=== PATIENT | female | born 1940 | race Caucasian/White ===

== ENCOUNTER 2018-06-18 21:25 | Inpatient (IN) | payer OTHER ==
--- NOTE | 2018-06-18 21:28 | PDOC ---
History of Present Illness - General History Source: Patient Exam Limitations: No Limitations - History of Present Illness Initial Comments: 06/18/18 22:33 The patient is a 77-year-old female with a past medical history significant for Breast CA (stage 3 with R. side mastectomy, 2005), spinal lesion (bone biopsy on 06/22/2018), Afib (was on Eliquis) and Asthma presents the emergency department with chest pain and shortness of breath. The patient presents with horizontal chest pain diffused across the chest since 7:30 pm, that worsened at 9:00 pm into radiating pain. The patient reports the pain radiated mid-way bilaterally to the arm. The patient states the pain self-resolving at the ER. The patient reports shes been having intermittent episode of similar chest pain for the past one month, that would self resolve in several minutes. The patient states the pain might be a reaction to a recent increase in her diltiazem medication. The patient reports following up with her radio communication coordinator, who states her symptoms arent manifesting for the heart. The patient reports having an unremarkable stress test and a VQ scan. Denies fever, chills, abdominal pain, urinary symptoms or changes in bowel habits. Allergies: See below. Social history: None reported Surgical history: Appendectomy PCP: None reported. <Sarah Ortiz - Last Filed: 06/18/18 22:45> <Arley Muñoz - Last Filed: 06/19/18 00:03> - General Chief Complaint: Chest Pain Stated Complaint: CP/SOB Time Seen by Provider: 06/18/18 21:28 Past History <Sarah Ortiz - Last Filed: 06/18/18 22:45> - Past Medical History Asthma: Yes Cancer: Yes (BREAST) Cardiac Disorders: Yes Disorders: Yes - Surgical History Appendectomy: Yes - Suicide/Smoking/Psychosocial Hx Smoking History: Never smoked Have you smoked in the past 12 months: No Hx Alcohol Use: Yes Drug/Substance Use Hx: No Substance Use Type: None Hx Substance Use Treatment: No <Arley Muñzo - Last Filed: 06/19/18 00:03> - Past Medical History Allergies/Adverse Reactions: Allergies Allergy/AdvReac Type Severity Reaction Status Date / Time amoxicillin Allergy Verified 06/28/15 20:23 ascorbic acid Allergy Verified 06/28/15 20:23 azithromycin Allergy Verified 06/28/15 20:23 ciprofloxacin Allergy Verified 06/28/15 20:23 doxycycline Allergy Verified 06/28/15 20:23 erythromycin base Allergy Verified 06/28/15 20:23 Gadolinium-Containing Allergy Verified 06/28/15 20:23 Contrast Medi levofloxacin Allergy Verified 06/28/15 20:23 lidocaine Allergy Verified 06/28/15 20:23 metronidazole Allergy Verified 06/28/15 20:23 morphine Allergy Verified 06/28/15 20:23 Sulfa (Sulfonamide Allergy Verified 06/28/15 20:23 Antibiotics) albuterol AdvReac Verified 06/28/15 20:23 cyanocobalamin (vitamin B12) AdvReac Verified 06/28/15 20:23 [cyanocobalamin] CONTRAST DYE Allergy Uncoded 06/28/15 20:23 Home Medications: Ambulatory Orders Cyclosporine [Restasis] 1 each OU BID 11/14/14 Eplerenone 50 mg PO DAILY 11/14/14 Fluticasone Propionate [Flovent Hfa] 2 inhaler IH BID 11/14/14 Ipratropium [place] [Atrovent Hfa] 2 inh IH PRN PRN 11/14/14 Levalbuterol Tartrate [Xopenex Hfa] 2 inh IH PRN PRN 11/14/14 Apixaban [Eliquis] 5 mg PO BID #60 tablet 06/26/15 Diltiazem Cd [Cardizem Cd -] 240 mg PO DAILY #30 cap.cd.24h 06/29/15 Review of Systems - Review of Systems Able to Perform ROS?: Yes Comments:: 06/18/18 22:31 CONSTITUTIONAL: No reported: Fever, Chills, Diaphoresis, Generalized Weakness, Malaise, Loss of Appetite HEENT: No reported: Rhinorrhea, Nasal Congestion, Throat Pain, Throat Swelling, Difficulty Swallowing, Mouth Swelling, Ear Pain, Eye Pain, Visual Changes CARDIOVASCULAR: +chest pain No reported: Syncope, Palpitations, Irregular Heart Rate, Lightheadedness, Peripheral Edema RESPIRATORY: +shortness of breath. No reported: Cough, SOB with Exertion, Orthopnea, Wheezing, Stridor, Hemoptysis GASTROINTESTINAL: No reported: Abdominal pain, Abdominal Distension, Nausea, Vomiting, Diarrhea, Constipation, Melena, Hematochezia GENITOURINARY: No reported: Dysuria, Frequency, Urgency, Hesitancy, Flank Pain, Genital Pain MUSCULOSKELETAL: No reported: Myalgia, Arthralgia, Joint Swelling, Back pain, Neck Pain SKIN:No reported: Rash, Itching, Pallor. <Sarah Ortiz - Last Filed: 06/18/18 22:45> *Physical Exam - Vital Signs Last Vital Signs Temp Pulse Resp BP Pulse Ox 97.7 F 96 H 18 137/70 100 06/18/18 21:35 06/18/18 21:35 06/18/18 21:35 06/18/18 21:35 06/18/18 21:35 - Physical Exam Comments: 06/18/18 22:46 GENERAL: The patient is awake, alert, and fully oriented, Nontoxic - in no acute distress. HEAD: Normocephalic, atraumatic. ENT: Normal voice, Moist mucous membranes. NECK: Normal range of motion, supple LUNGS: Breath sounds equal, clear to auscultation bilaterally. No wheezes, no rhonchi, no rales. HEART: Regular rate and rhythm, without murmur, rub or gallop. ABDOMEN: Soft, nontender, No guarding, no rebound.No CVA tenderness EXTREMITIES: Normal range of motion, no edema. No cyanosis. No erythema, or tenderness. NEUROLOGICAL: No facial asymmetry, Normal speech, SKIN: Warm, Dry, normal turgor <Sarah Ortiz - Last Filed: 06/18/18 22:45> Moderate Sedation - Procedure Monitoring Vital Signs: Procedure Monitoring Vital Signs Temperature 97.7 F 06/18/18 21:35 Pulse Rate 96 H 06/18/18 21:35 Respiratory Rate 18 06/18/18 21:35 Blood Pressure 137/70 06/18/18 21:35 O2 Sat by Pulse Oximetry (%) 100 06/18/18 21:35 <Sarah Ortiz - Last Filed: 06/18/18 22:45> ED Treatment Course - LABORATORY CBC & Chemistry Diagram: 06/18/18 22:47 06/18/18 22:47 <Arley Muñoz - Last Filed: 06/19/18 00:03> Medical Decision Making - Medical Decision Making 06/19/18 00:01 sinus at 90 nl axis, prolonged QTC (unchanged), new twi (compared to 2016) inferiorly cxr--worsening interstitial lung dz, as read by me, referred to radiology for definitive read a/p nstemi asa lovenox monitor cards consult in AM <Arley Muñoz - Last Filed: 06/19/18 00:03> *DC/Admit/Observation/Transfer - Attestations Scribe Attestion: 06/18/18 22:32 Documentation prepared by Sarah Ortiz, acting as medical care manager for Arley Muñoz MD. <Sarah Ortiz - Last Filed: 06/18/18 22:45> - Discharge Dispostion Decision to Admit order: Yes <Arley Muñoz - Last Filed: 06/19/18 00:03> Diagnosis at time of Disposition: NSTEMI (non-ST elevated myocardial infarction) - Discharge Dispostion Condition at time of disposition: Stable
[2018-06-18 21:40] VITALS: BMI 34.5
[2018-06-18 23:04] LABS: BASO % 2.1 % (0-2.0); EOS % 1.8 % (0-4.5); HEMATOCRIT 34.4 % (32.4-45.2); HEMOGLOBIN 11.5 GM/dl (10.7-15.3); LYMPH % 21.1 % (8-40); MCH 29.4 pg (25.7-33.7); MCHC 33.5 g/dl (32.0-36.0); MEAN CELL VOLUME 87.7 fl (80-96); MONO % 8.1 % (3.8-10.2); NEUT % 66.9 % (42.8-82.8); PLATELET COUNT 196 K/MM3 (134-434); RBC 3.92 M/mm3 (3.60-5.2); RDW 14.6 % (11.6-15.6); WHITE BLOOD COUNT 6.9 K/mm3 (4.0-10.8)
[2018-06-18 23:13] LABS: ALBUMIN 3.4 g/dl (3.5-5.0); ALK PHOS 77 U/L (32-92); ANION GAP 11 MMOL/L (8-16); BILIRUBIN,TOTAL 0.5 mg/dl (0.2-1.0); BLOOD UREA NITROGEN 18 mg/dl (7-18); CALCIUM 9.1 mg/dl (8.4-10.2); CHLORIDE 103 mmol/L (98-107); CO2 22 mmol/L (22-28); CREATININE 1.1 mg/dl (0.6-1.3); GLUCOSE,RANDOM 194 mg/dl (74-106); POTASSIUM 4.3 mmol/L (3.5-5.1); SGOT/AST 23 U/L (10-42); SGPT/ALT 15 U/L (10-40); SODIUM 136 mmol/L (136-145); TOT PROT 6.5 g/dl (6.4-8.3)
[2018-06-18] MEDS ORDERED: ENOXAPARIN NA (PORCINE) 100 MG/1 ML DISP.SYRIN SQ ONE ×2 (23:50→23:55)
[2018-06-18] MEDS ORDERED: ASPIRIN 325 MG TABLET PO ONE (23:50)
[2018-06-18] MEDS ORDERED: ASPIRIN 325 MG TABLET ONE (23:51)
--- NOTE | 2018-06-19 03:28 | HP ---
Admitting History and Physical - Primary Care Physician PCP: Doctor not on staff - Admission Chief Complaint: Chest Pain, SOB History of Present Illness: This is a pleasant 77 y/o woman from home with a past medical history of Afib ( on Eliquis), Asthma, Stage 3 Breast Ca s/p R- Mastectomy 2004 (Chemo, RT, completed), recent diagnosed with Spinal Lesions (scheduled Bone biopsy 06/22/18) . Who presents to the [place] ED with chest pain radiating to B/L shoulders , arms, and SOB x last night. Patient reports having horizontal anterior chest pressure while at rest, unrelieved after using her rescue inhaler. She reports having a similar episode 1 month ago which was relieved with the MDI. Patient reports having increased SOB on exertion and at rest. Patient reports recent international travel to [place] 11hr flight 05/30-06/13. Patient has a familial hx of CAD. Patient denies fever, chills, dizziness, palpitations, AP, N/V/D, constipation, melena, hematochezia, hematuria, dysuria. PCP: [place] Zulma Lopez [place][phone][place] [facility] [place] Instructional Technologist: Dr. Yeimi Huber ([phone][place] [facility] [place] Harvest Field Ticketer: Dr. Ofelia Short ([phone][place] [facility] [place] History Source: Patient Limitations to Obtaining History: No Limitations - Past Medical History Cardiovascular: Yes: AFIB Pulmonary: Yes: Asthma Heme/Onc: Yes: Cancer (breast s/p mastectomy) - Past Surgical History Past Surgical History: Yes: Appendectomy, Mastectomy - Smoking History Smoking history: Never smoked Have you smoked in the past 12 months: No - Alcohol/Substance Use Hx Alcohol Use: Yes History of Substance Use: reports: None - Social History Usual Living Arrangement: Yes: With Spouse ADL: Independent Occupation: Educational Psychologist- semi retired History of Recent Travel: Yes ([place]) Home Medications - Allergies Allergies/Adverse Reactions: Allergies Allergy/AdvReac Type Severity Reaction Status Date / Time amoxicillin Allergy Verified 06/28/15 20:23 ascorbic acid Allergy Verified 06/28/15 20:23 azithromycin Allergy Verified 06/28/15 20:23 ciprofloxacin Allergy Verified 06/28/15 20:23 doxycycline Allergy Verified 06/28/15 20:23 erythromycin base Allergy Verified 06/28/15 20:23 Gadolinium-Containing Allergy Verified 06/28/15 20:23 Contrast Medi levofloxacin Allergy Verified 06/28/15 20:23 lidocaine Allergy Verified 06/28/15 20:23 metronidazole Allergy Verified 06/28/15 20:23 morphine Allergy Verified 06/28/15 20:23 Sulfa (Sulfonamide Allergy Verified 06/28/15 20:23 Antibiotics) albuterol AdvReac Verified 06/28/15 20:23 cyanocobalamin (vitamin B12) AdvReac Verified 06/28/15 20:23 [cyanocobalamin] CONTRAST DYE Allergy Uncoded 06/28/15 20:23 - Home Medications Home Medications: Ambulatory Orders Cyclosporine [Restasis] 1 each OU BID 11/14/14 Eplerenone 50 mg PO DAILY 11/14/14 Fluticasone Propionate [Flovent Hfa] 2 inhaler IH BID 11/14/14 Ipratropium [place] [Atrovent Hfa] 2 inh IH PRN PRN 11/14/14 Levalbuterol Tartrate [Xopenex Hfa] 2 inh IH PRN PRN 11/14/14 Apixaban [Eliquis] 5 mg PO BID #60 tablet 06/26/15 Diltiazem Cd [Cardizem Cd -] 240 mg PO DAILY #30 cap.cd.24h 06/29/15 Family Disease History - Family Disease History Family Disease History: Heart Disease: Father (CAD- stent, CHF, in his 80's), CA: Father, Mother (Breast Ca, Mycosis Fungoides, Emphysema, ) Review of Systems - Review of Systems Constitutional: reports: No Symptoms Eyes: reports: No Symptoms HENT: reports: No Symptoms Neck: reports: No Symptoms Cardiovascular: reports: Chest Pain, Shortness of Breath Respiratory: reports: SOB, SOB on Exertion Gastrointestinal: reports: No Symptoms Genitourinary: reports: No Symptoms Breasts: reports: No Symptoms Reported Musculoskeletal: reports: No Symptoms Integumentary: reports: No Symptoms Neurological: reports: No Symptoms Endocrine: reports: No Symptoms Hematology/Lymphatic: reports: No Symptoms Psychiatric: reports: No Symptoms Pain Intensity: 0 Physical Examination Vital Signs: Vital Signs Temperature 98.7 F 06/19/18 00:41 Pulse Rate 88 06/19/18 00:41 Respiratory Rate 20 06/19/18 00:41 Blood Pressure 116/47 L 06/19/18 00:41 O2 Sat by Pulse Oximetry (%) 97 06/19/18 00:41 Constitutional: Yes: Well Nourished, No Distress, Calm, Obese Eyes: Yes: WNL, Conjunctiva Clear, EOM Intact, PERRL HENT: Yes: WNL, Atraumatic, Normocephalic Neck: Yes: WNL, Supple, Trachea Midline Cardiovascular: Yes: WNL, Regular Rate and Rhythm, S1, S2 Respiratory: Yes: Regular, CTA Bilaterally Gastrointestinal: Yes: WNL, Normal Bowel Sounds, Soft, Abdomen, Obese Renal/: Yes: WNL Breast(s): Yes: Right (s/p mastectomy) Musculoskeletal: Yes: WNL Edema: Yes Edema: RUE: 4+ (lymph edema) Peripheral Pulses WNL: Yes Neurological: Yes: WNL, Alert, Oriented ...Motor Strength: WNL Psychiatric: Yes: WNL, Alert, Oriented Labs: CBC, BMP 06/18/18 22:47 06/18/18 22:47 Troponin, BNP 06/18/18 22:47 Troponin I 0.45 H Problem List - Problems (1) NSTEMI (non-ST elevated myocardial infarction) Assessment/Plan: r/o WI HEART Score 7 KATE Score 2 Continue cardiac monitoring Serial Enzymes elevated, will trend Chest Xray image increased markings R-base, RUL CT Chest-pending Asa, Lovenox given in ED, will continue Appreciate Cardiology consult- discussed case with Dr Beyer Echo Lipid Panel, HgbA1c in am Monitor CBC, BMP O2 Code(s): I21.4 - NON-ST ELEVATION (NSTEMI) MYOCARDIAL INFARCTION (2) Dyspnea Assessment/Plan: Likely secondary to ACS vs PE vs Mass Chest Xray image showed increased markings to R-base, lateral aspect PERC 1 Wells Score [address] Chest r/o Mass, cannot use contrast 2/2 allergy Appreciate Pulmonology consult Duonebs prn Monitor vitals Code(s): R06.00 - DYSPNEA, UNSPECIFIED (3) Asthma Assessment/Plan: stable Chest Xray image reviewed- Increased markings noted to R- base and lateral borders Continue Flovent, Xopenox Peak Flow BID Code(s): J45.909 - UNSPECIFIED ASTHMA, UNCOMPLICATED (4) Breast CA Assessment/Plan: s/p R-Mastectomy, w Chemo, RT 2004 [facility] Oncology consult Code(s): C50.919 - MALIGNANT NEOPLASM OF UNSP SITE OF UNSPECIFIED FEMALE BREAST (5) Afib Assessment/Plan: Stable [id number] 3 EKG- NSR ,incomplete RBBB, inferior infarct age undetermined, change from prior study- inferior infarct new Lovenox given in ED, will continue Eliquis Held Continue cardiology monitor Code(s): I48.91 - UNSPECIFIED ATRIAL FIBRILLATION Assessment/Plan This is a 77 y/o woman with a PMHx of: Afib (on Eliquis), Asthma, Stage 3 Breast Ca (Chemo, RT, completed), Spinal Lesion (scheduled bone biopsy 06/22/18) . Admitted to Telemetry for NSTEMI for further evaluation of their emergent condition. Plan: See Problem List FEN PO fluids as tolerated Replete lytes prn Low Na Diet DVT ppx OOB SCDs Continue Lovenox Dispo: Requires Inpatient Care Visit type - Emergency Visit Emergency Visit: Yes ED Registration Date: 06/18/18 Care time: The patient presented to the Emergency Department on the above date and was hospitalized for further evaluation of their emergent condition. - New Patient This patient is new to me today: Yes Date on this admission: 06/19/18 - Critical Care Critical Care patient: No
[2018-06-19 03:44] VITALS: TEMP 97.9
[2018-06-19] MEDS ORDERED: ATORVASTATIN CA 80 MG TABLET (FP) PO ONE (04:58)
[2018-06-19] MEDS ORDERED: LEVALBUTEROL TARTRATE IH PRN (07:22)
[2018-06-19] MEDS ORDERED: IPRATROPIUM BROMIDE IH PRN (07:22)
[2018-06-19 08:00] LABS: BASO % 1.1 % (0-2.0); EOS % 1.9 % (0-4.5); HEMATOCRIT 32.7 % (32.4-45.2); HEMOGLOBIN 11.2 GM/dL (10.7-15.3); LYMPH % 30.9 % (8-40); MCH 29.8 pg (25.7-33.7); MCHC 34.2 g/dl (32.0-36.0); MEAN CELL VOLUME 87.2 fl (80-96); MEAN PLT VOLUME 7.9 fl (7.5-11.1); MONO % 8.2 % (3.8-10.2); NEUT % 57.9 % (42.8-82.8); PLATELET COUNT 167 K/MM3 (134-434); RBC 3.75 M/mm3 (3.60-5.2); RDW 15.6 % (11.6-15.6)
[2018-06-19 08:16] LABS: INR 1.06 (0.83-1.09); PROTHROMBIN TIME (PATIENT) 12.5 SEC (9.7-13.0)
[2018-06-19 08:59] LABS: ANION GAP 9 MMOL/L (8-16); BLOOD UREA NITROGEN 17 mg/dL (7-18); CALCIUM 8.5 mg/dL (8.5-10.1); CHLORIDE 106 mmol/L (98-107); CHOLESTEROL 231 mg/dL (50-200); CO2 24 mmol/L (21-32); GLUCOSE,RANDOM 136 mg/dL (74-106); HDL CHOLESTEROL 59 mg/dL (40-60); N-TERMINAL BNP 1869.2 pg/ml (5-450); PHOSPHOROUS 3.4 mg/dL (2.5-4.9); POTASSIUM 4.3 mmol/L (3.5-5.1); SODIUM 139 mmol/L (136-145); TRIGLYCERIDES 189 mg/dL (0-150)
[2018-06-19] MEDS ORDERED: HEPARIN NA (PORCINE) 5,000 UNITS/ML 1ML VIAL IVPUSH PRN ×2 (09:47)
[2018-06-19] MEDS ORDERED: CLOPIDOGREL BISULFATE 300 MG TABLET PO ONE (09:48)
[2018-06-19] MEDS ORDERED: CLOPIDOGREL BISULFATE 75 MG TABLET (FP) PO SCH (10:00)
[2018-06-19] MEDS ORDERED: PATIENT'S OWN MEDICATION (NON-FORMULARY) (Cyclosporine [Restasis] 1 EACH) OU SCH (10:00)
[2018-06-19] MEDS ORDERED: ASPIRIN 81 MG CHEWABLE TABLETS PO SCH (10:00)
[2018-06-19] MEDS ORDERED: EPLERENONE 25 MG TABLET PO SCH (10:00)
[2018-06-19] MEDS ORDERED: HEPARIN - 25,000 UNIT in SODIUM CHLORIDE 495 ML IV SCH (10:00)
[2018-06-19 10:07] VITALS: BP 146/79; PULSE 88
--- NOTE | 2018-06-19 10:30 | HOSP ---
Subjective - Review of Symptoms Events since last encounter: she has no cp now but had last night mild sob no fever or chills no distress General: Yes: Fatigue. No: Chills, Night Sweats, Malaise, Appetite, Other HEENT: Yes: Head Aches, Visual Changes, Eye Pain, Ear Pain, Dysphasia, Sinus Congestion, Post Nasal Drip, Sore Throat, Other Cardiovascular: Yes: Chest Pain, Orthopnea. No: Palpitations, Paroxysmal Noc. Dyspnea, Edema, Light Headedness, Other Gastrointestinal: Yes: Nausea, NOSYM, Vomiting, Abdominal Pain, Diarrhea, Constipation, Melena, Hematochezia, Other Genitourinary: Yes: Dysuria, NOSYM, Frequency, Incontinence, Hematuria, Retention, Other Musculoskeletal: Yes: No Symptoms, Back Pain, Crepitus, Decreased ROM, Extremity Pain, Joint Pain, Joint Swelling, Muscle Pain, Muscle Cramps, Muscle Weakness, Other Neurological: Yes: Weakness, Numbness, Incoordination, Change in speech, Confusion, Seizures, Other Physical Examination Vital Signs: Vital Signs Temperature 97.9 F 06/19/18 06:00 Pulse Rate 88 06/19/18 10:00 Respiratory Rate 18 06/19/18 10:00 Blood Pressure 146/79 06/19/18 10:00 O2 Sat by Pulse Oximetry (%) 94 L 06/19/18 02:20 Constitutional: Yes: No Distress HENT: Yes: Atraumatic Cardiovascular: Yes: Pulse Irregular, Murmur Respiratory: Yes: WNL Gastrointestinal: Yes: WNL Musculoskeletal: Yes: WNL Extremities: Yes: WNL Neurological: Yes: WNL, Alert, Oriented Labs: CBC, BMP 06/19/18 06:38 06/19/18 06:38 Hospitalist Encounter Assessment: Current Medications Aspirin (Asa -) 81 mg PO DAILY VIPIN Atorvastatin Calcium (Lipitor -) 80 mg PO HS VIPIN Clopidogrel Bisulfate (Plavix -) 75 mg PO DAILY [facility] Diltiazem HCl (Cardizem Cd -) 180 mg PO DAILY VIPIN Eplerenone (Eplerenone) 50 mg PO DAILY VIPIN Heparin Sodium (Porcine) (Heparin -) 1,000 unit IVPUSH PRN PRN PRN Reason: Heparin Heparin Sodium (Porcine) (Heparin -) 5,000 unit IVPUSH PRN PRN PRN Reason: Heparin Heparin Sodium (Porcine) 25, (000 unit/ Sodium Chloride) 500 mls @ 20 mls/hr IV TITR VIPIN; Protocol Mometasone Furoate (Asmanex 220mcg -) 1 puff IH HS VIPIN Non-Formulary Medication (Cyclosporine [Restasis]) 1 each OU BID VIPIN Non-Formulary Medication (Ipratropium [place] [Atrovent Hfa]) 2 inh IH PRN PRN PRN Reason: ASTHMA Non-Formulary Medication (Levalbuterol Tartrate [Xopenex Hfa]) 2 inh IH PRN PRN PRN Reason: ASTHMA A/p acute chest pains with positive cardiac enzyme she is being transfered to [facility] for cardiac cath AND FURTHER W/U cotinue heparin and asprin and plavix asthma continue inhalers
[2018-06-19] MEDS ORDERED: PT OWN MED DRAWER 7, Y5N ONE (11:22)
--- NOTE | 2018-06-19 11:24 | CON.CARD ---
Consult Consult Specialty:: Cardiology Referred by:: Valentin Reason for Consultation:: NSTEMI - History of Present Illness Chief Complaint: chest pain History of Present Illness: 77F h/o afib, asthma, stage III breast Ca s/p R mastectomy 2004, spinal lesions with planned bone bx p/w chest pain. Horizontal chest pain across her chest radiating to both arms associated with short of breath last night, lasting for about two hours. Has had intermittent shorter episodes for the last month, worsening dyspnea on exertion. Was initially at [facility] ER, transferred for trop 0.45, given lovenox, aspirin overnight, trop this AM 3.9 started on heparin gtt and given clopidogrel 300 mg PO x1. This morning had episode of chest pain again similar to prior, which resolved without intervention. Currently no chest pain, dyspnea, palps, dizziness, lightheadedness. 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 Travel: Yes ([place]) Home Medications - Allergies Allergies/Adverse Reactions: Allergies Allergy/AdvReac Type Severity Reaction Status Date / Time amoxicillin Allergy Verified 06/28/15 20:23 ascorbic acid Allergy Verified 06/28/15 20:23 azithromycin Allergy Verified 06/28/15 20:23 ciprofloxacin Allergy Verified 06/28/15 20:23 doxycycline Allergy Verified 06/28/15 20:23 erythromycin base Allergy Verified 06/28/15 20:23 Gadolinium-Containing Allergy Verified 06/28/15 20:23 Contrast Medi levofloxacin Allergy Verified 06/28/15 20:23 lidocaine Allergy Verified 06/28/15 20:23 metronidazole Allergy Verified 06/28/15 20:23 morphine Allergy Verified 06/28/15 20:23 Sulfa (Sulfonamide Allergy Verified 06/28/15 20:23 Antibiotics) albuterol AdvReac Verified 06/28/15 20:23 cyanocobalamin (vitamin B12) AdvReac Verified 06/28/15 20:23 [cyanocobalamin] CONTRAST DYE Allergy Uncoded 06/28/15 20:23 - Home Medications Home Medications: Ambulatory Orders Cyclosporine [Restasis] 1 each OU BID 11/14/14 Eplerenone 50 mg PO DAILY 11/14/14 Fluticasone Propionate [Flovent Hfa] 2 inhaler IH BID 11/14/14 Ipratropium [place] [Atrovent Hfa] 2 inh IH PRN PRN 11/14/14 Levalbuterol Tartrate [Xopenex Hfa] 2 inh IH PRN PRN 11/14/14 Apixaban [Eliquis] 5 mg PO BID #60 tablet 06/26/15 Diltiazem Cd [Cardizem Cd -] 240 mg PO DAILY #30 cap.cd.24h 06/29/15 Family Disease History - Family Disease History Family Disease History: Heart Disease: Father (CAD- stent, CHF, in his 80's), CA: Father, Mother (Breast Ca, Mycosis Fungoides, Emphysema, ) Review of Systems - Review of Systems Constitutional: reports: No Symptoms Eyes: reports: No Symptoms HENT: reports: No Symptoms Neck: reports: No Symptoms Cardiovascular: reports: No Symptoms Respiratory: reports: No Symptoms Gastrointestinal: reports: No Symptoms Genitourinary: reports: No Symptoms Musculoskeletal: reports: No Symptoms Integumentary: reports: No Symptoms Neurological: reports: No Symptoms Endocrine: reports: No Symptoms Hematology/Lymphatic: reports: No Symptoms Psychiatric: reports: No Symptoms Vital Signs: Vital Signs Temperature 97.9 F 06/19/18 06:00 Pulse Rate 88 06/19/18 10:00 Respiratory Rate 18 06/19/18 10:00 Blood Pressure 146/79 06/19/18 10:00 O2 Sat by Pulse Oximetry (%) 94 L 06/19/18 02:20 Constitutional: Yes: No Distress, Calm Eyes: Yes: Conjunctiva Clear, EOM Intact HENT: Yes: Atraumatic, Normocephalic Neck: Yes: Supple, Trachea Midline Respiratory: Yes: Regular, CTA Bilaterally Gastrointestinal: Yes: Normal Bowel Sounds, Soft Cardiovascular: Yes: Regular Rate and Rhythm JVD: No Carotid Bruit: No PMI: Non-Displaced Heart Sounds: Yes: S1, S2 Musculoskeletal: No: Back Pain Extremities: No: Cold Edema: No Peripheral Pulses WNL: Yes Peripheral Pulses: 2+ Left Doralis Pedis, 2+ Right Dorsalis Pedis Integumentary: No: Jaundice Neurological: Yes: Alert, Oriented Psychiatric: No: Agitated - Other Data Labs, Other Data: CBC, BMP 06/19/18 06:38 06/19/18 06:38 INR, PTT INR 1.06 (0.83-1.09) 06/19/18 06:38 Troponin, BNP 06/18/18 06/19/18 22:47 06:38 Troponin I 0.45 H 3.90 H* B-Natriuretic Peptide 1869.2 H Troponin, BNP 06/18/18 06/19/18 22:47 06:38 Troponin I 0.45 H 3.90 H* B-Natriuretic Peptide 1869.2 H Assessment/Plan EKG: sinus, IRBBB, no ischemic changes CXR: scarring RUL no acute pathology CT chest noncon: R apical fibrosis, atelectasis, bronchiectasis most likely chronic in snature, trace R pleural effusion, no acute pathology NSTEMI - trop 0.45 -> 3.9 in setting of chest pain c/w ACS - EKG no ischemic changes - on heparin gtt, received aspirin, plavix, statin - patient agreeable to transfer for cardiac cath, her outside balling head tender is at [place], accepted by interventionalist Dr. Constantino at [facility] for transfer HTN - stable on current meds, continue asthma - cont inhalers
[2018-06-19] MEDS ORDERED: ATORVASTATIN CA 80 MG TABLET (FP) PO SCH ×3 (11:45→22:00)
--- NOTE | 2018-06-19 15:01 | CON.PULM ---
Consult Consult Specialty:: PULMONARY Referred by:: Dr. Hanson Reason for Consultation:: shortness of breath - History of Present Illness Chief Complaint: chest pain History of Present Illness: 77yo female with h/o atrial fibrillation, asthma, breast ca s/p right mastectomy /chemo/RT who presented with anterior chest pain across chest radiating to her arms associated with shortness of breath. No nausea or vomiting. Found to have + troponins and now being scheduled for a cardiac catheterization. She states her asthma is controlled on albuterol. CXR and CT chest showing RUL changes. She states she has had a prior CT chest which reportedly was consistent with radiation changes. Denies fevers, chills or sweats. No cough or wheezing. - History Source History Provided By: Patient, Medical Record Limitations to Obtaining History: No Limitations 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 Travel: Yes ([place]) Home Medications - Allergies Allergies/Adverse Reactions: Allergies Allergy/AdvReac Type Severity Reaction Status Date / Time amoxicillin Allergy Verified 06/28/15 20:23 ascorbic acid Allergy Verified 06/28/15 20:23 azithromycin Allergy Verified 06/28/15 20:23 ciprofloxacin Allergy Verified 06/28/15 20:23 doxycycline Allergy Verified 06/28/15 20:23 erythromycin base Allergy Verified 06/28/15 20:23 Gadolinium-Containing Allergy Verified 06/28/15 20:23 Contrast Medi levofloxacin Allergy Verified 06/28/15 20:23 lidocaine Allergy Verified 06/28/15 20:23 metronidazole Allergy Verified 06/28/15 20:23 morphine Allergy Verified 06/28/15 20:23 Sulfa (Sulfonamide Allergy Verified 06/28/15 20:23 Antibiotics) albuterol AdvReac Verified 06/28/15 20:23 cyanocobalamin (vitamin B12) AdvReac Verified 06/28/15 20:23 [cyanocobalamin] CONTRAST DYE Allergy Uncoded 06/28/15 20:23 - Home Medications Home Medications: Ambulatory Orders Cyclosporine [Restasis] 1 each OU BID 06/16/15 Eplerenone 50 mg PO DAILY 11/14/14 Fluticasone Propionate [Flovent Hfa] 2 inhaler IH BID 11/14/14 Ipratropium [place] [Atrovent Hfa] 2 inh IH PRN PRN 11/14/14 Levalbuterol Tartrate [Xopenex Hfa] 2 inh IH PRN PRN 11/14/14 Apixaban [Eliquis] 5 mg PO BID #60 tablet 06/26/15 Diltiazem Cd [Cardizem Cd -] 240 mg PO DAILY #30 cap.cd.24h 06/29/15 Family Disease History - Family Disease History Family Disease History: Heart Disease: Father (CAD- stent, CHF, in his 80's), CA: Father, Mother (Breast Ca, Mycosis Fungoides, Emphysema, ) Review of Systems - Review of Systems Constitutional: denies: Chills, Fever, Weakness Eyes: denies: Recent Change in Vision HENT: denies: Nasal Congestion, Throat Pain Neck: denies: Stiffness, Tenderness Cardiovascular: reports: Chest Pain, Shortness of Breath. denies: Edema, Palpitations Respiratory: denies: Cough, Hemoptysis, Wheezing Gastrointestinal: denies: Abdominal Pain, Nausea, Vomiting Genitourinary: denies: Dysuria, Hematuria Neurological: denies: Dizziness, Headache Endocrine: denies: Unexplained Weight Loss Physical Exam Vital Sings: Vital Signs Temperature 97.9 F 06/19/18 06:00 Pulse Rate 88 06/19/18 10:00 Respiratory Rate 18 06/19/18 10:00 Blood Pressure 146/79 06/19/18 10:00 O2 Sat by Pulse Oximetry (%) 94 L 06/19/18 02:20 Constitutional: Yes: Calm Eyes: Yes: Conjunctiva Clear, EOM Intact HENT: Yes: Atraumatic, Normocephalic Neck: Yes: Supple, Trachea Midline Cardiovascular: Yes: Regular Rate and Rhythm Respiratory: Yes: Regular, CTA Bilaterally ...Clubbing: No Gastrointestinal: Yes: Normal Bowel Sounds, Soft. No: Tenderness Edema: No Neurological: Yes: Alert, Oriented Labs: CBC, BMP 06/19/18 06:38 06/19/18 06:38 Imaging - Results Chest X-ray: Report Reviewed, Image Reviewed Cat Scan: Report Reviewed, Image Reviewed (RUL opacity) Problem List - Problems (1) NSTEMI (non-ST elevated myocardial infarction) Code(s): I21.4 - NON-ST ELEVATION (NSTEMI) MYOCARDIAL INFARCTION (2) Afib Code(s): I48.91 - UNSPECIFIED ATRIAL FIBRILLATION (3) Asthma Code(s): J45.909 - UNSPECIFIED ASTHMA, UNCOMPLICATED (4) Breast CA Code(s): C50.919 - MALIGNANT NEOPLASM OF UNSP SITE OF UNSPECIFIED FEMALE BREAST Assessment/Plan Acute NSTEMI Shortness of Breath likely related to above Atrial Fibrillation h/o Breast Ca s/p R Mastectomy/chemo/RT Asthma stable - for cardiac catheterization - inhaled bronchodilators as needed - chest imaging findings likely chronic, will need continued outpt f/u Thank you for this consult Zain Zhou MD
--- NOTE | 2018-06-19 17:49 | DS ---
Physical Exam: SUBJECTIVE: Patient seen and examined OBJECTIVE:pt had acute chest pain and positive cardiac enzymes and continue to have pains on telemetry Vital Signs Period Temp Pulse Resp BP Sys/Hammond Pulse Ox Last 24 Hr 97.7 F-98.7 F 80-96 18-20 116-146/47-79 94-100 PHYSICAL EXAM GENERAL: The patient is awake, alert, and fully oriented, in no acute distress. HEAD: Normal with no signs of trauma. EYES: PERRL, extraocular movements intact, sclera anicteric, conjunctiva clear. ENT: Ears normal, nares patent, oropharynx clear without exudates, moist mucous membranes. NECK: Trachea midline, full range of motion, supple. LUNGS: Breath sounds equal, clear to auscultation bilaterally, no wheezes, no crackles, no accessory muscle use. HEART: Regular rate and rhythm, S1, S2 without murmur, rub or gallop. ABDOMEN: Soft, nontender, nondistended, normoactive bowel sounds, no guarding, no rebound, no hepatosplenomegaly, no masses. EXTREMITIES: 2+ pulses, warm, well-perfused, no edema. NEUROLOGICAL: Cranial nerves II through XII grossly intact. Normal speech, gait not observed. PSYCH: Normal mood, normal affect. SKIN: Warm, dry, normal turgor, no rashes or lesions noted. LABS Laboratory Results - last 24 hr 06/18/18 06/18/18 06/18/18 22:47 22:47 22:47 WBC 6.9 RBC 3.92 Hgb 11.5 Hct 34.4 D MCV 87.7 MCH 29.4 MCHC 33.5 RDW 14.6 Plt Count 196 MPV 8.0 Absolute Neuts (auto) 4.7 Neutrophils % 66.9 Lymphocytes % 21.1 Monocytes % 8.1 Eosinophils % 1.8 Basophils % 2.1 H Nucleated RBC % PT with INR INR Sodium 136 Potassium 4.3 Chloride 103 Carbon Dioxide 22 Anion Gap 11 BUN 18 Creatinine 1.1 Creat Clearance w eGFR 48.04 Random Glucose 194 H Hemoglobin A1c % Calcium 9.1 Phosphorus Magnesium Total Bilirubin 0.5 AST 23 D ALT 15 D Alkaline Phosphatase 77 Troponin I 0.45 H B-Natriuretic Peptide Total Protein 6.5 Albumin 3.4 L Triglycerides Cholesterol Total LDL Cholesterol HDL Cholesterol 06/19/18 06/19/18 06/19/18 06:38 06:38 06:38 WBC 5.0 RBC 3.75 Hgb 11.2 Hct 32.7 MCV 87.2 MCH 29.8 MCHC 34.2 RDW 15.6 Plt Count 167 MPV 7.9 Absolute Neuts (auto) 2.9 Neutrophils % 57.9 Lymphocytes % 30.9 Monocytes % 8.2 Eosinophils % 1.9 Basophils % 1.1 Nucleated RBC % 0 PT with INR 12.50 INR 1.06 Sodium 139 Potassium 4.3 Chloride 106 Carbon Dioxide 24 Anion Gap 9 BUN 17 Creatinine 1.0 Creat Clearance w eGFR 53.62 Random Glucose 136 H Hemoglobin A1c % Calcium 8.5 Phosphorus 3.4 Magnesium 2.0 Total Bilirubin AST ALT Alkaline Phosphatase Troponin I 3.90 H* B-Natriuretic Peptide 1869.2 H Total Protein Albumin Triglycerides 189 H Cholesterol 231 H Total LDL Cholesterol 149 H HDL Cholesterol 59 06/19/18 06/19/18 06:38 12:10 WBC RBC Hgb Hct MCV MCH MCHC RDW Plt Count MPV Absolute Neuts (auto) Neutrophils % Lymphocytes % Monocytes % Eosinophils % Basophils % Nucleated RBC % PT with INR INR Sodium Potassium Chloride Carbon Dioxide Anion Gap BUN Creatinine Creat Clearance w eGFR Random Glucose Hemoglobin A1c % 7.9 H Calcium Phosphorus Magnesium Total Bilirubin AST ALT Alkaline Phosphatase Troponin I 3.40 H* B-Natriuretic Peptide Total Protein Albumin Triglycerides Cholesterol Total LDL Cholesterol HDL Cholesterol HOSPITAL COURSE: Date of Admission:06/19/18 Date of Discharge: 06/19/18 she was admitted to telemetery and started on aspiring and plavix and heparin ' she continue to have pain. she was seen by cardio was decided to transfer to [place] for cardiac interventions. Minutes to complete discharge: 30 Discharge Summary Reason For Visit: CHEST PAIN/NSTEMI Current Active Problems Afib (Acute) Asthma (Acute) Breast CA (Acute) NSTEMI (non-ST elevated myocardial infarction) (Acute) Condition: Critical - Instructions Disposition: TRANSFER ACUTE CARE/OTHER HOSP - Home Medications Comprehensive Discharge Medication List: Ambulatory Orders Cyclosporine [Restasis] 1 each OU BID 11/14/14 Eplerenone 50 mg PO DAILY 11/14/14 Fluticasone Propionate [Flovent Hfa] 2 inhaler IH BID 11/14/14 Ipratropium [place] [Atrovent Hfa] 2 inh IH PRN PRN 11/14/14 Levalbuterol Tartrate [Xopenex Hfa] 2 inh IH PRN PRN 11/14/14 Apixaban [Eliquis] 5 mg PO BID #60 tablet 06/26/15 Diltiazem Cd [Cardizem Cd -] 240 mg PO DAILY #30 cap.cd.24h 06/29/15 Emergency Visit: Yes ED Registration Date: 06/19/18 Care time: The patient presented to the Emergency Department on the above date and was hospitalized for further evaluation of their emergent condition. Critical Care patient: No - Discharge Referral Referred to [facility] No
[2018-06-19] MEDS ORDERED: MOMETASONE FUROATE 220 MCG/IH INHALER IH SCH (22:00)
--- NOTE | 2018-06-20 19:10 | EKG ---
Test Reason : Blood Pressure : / mmHG Vent. Rate : 088 BPM Atrial Rate : 088 BPM P-R Int : 190 ms QRS Dur : 110 ms QT Int : 432 ms P-R-T Axes : 048 010 034 degrees QTc Int : 522 ms NORMAL SINUS RHYTHM PROLONGED QT ABNORMAL ECG WHEN COMPARED WITH ECG OF 18-JUN-2018 23:44, NO SIGNIFICANT CHANGE WAS FOUND Confirmed by PARISH RON MD ([id number]) on 06/20/2018 7:09:38 PM Referred By: Lenka PRINCE Confirmed By:PARISH RON MD
--- NOTE | 2018-06-23 10:47 | EKG ---
Test Reason : Blood Pressure : / mmHG Vent. Rate : 090 BPM Atrial Rate : 090 BPM P-R Int : 180 ms QRS Dur : 110 ms QT Int : 414 ms P-R-T Axes : 042 013 029 degrees QTc Int : 506 ms NORMAL SINUS RHYTHM INCOMPLETE RIGHT BUNDLE BRANCH BLOCK CANNOT RULE OUT INFERIOR INFARCT (CITED ON OR BEFORE 18-JUN-2018) ABNORMAL ECG WHEN COMPARED WITH ECG OF 18-JUN-2018 21:45, NO SIGNIFICANT CHANGE WAS FOUND Confirmed by ONEIL CHAMPAGNE MD ([id number]) on 06/23/2018 10:46:53 AM Referred By: MD MARTIN Confirmed By:ONEIL CHAMPAGNE MD
--- NOTE | 2018-06-23 10:50 | EKG ---
Test Reason : Blood Pressure : / mmHG Vent. Rate : 093 BPM Atrial Rate : 093 BPM P-R Int : 168 ms QRS Dur : 116 ms QT Int : 424 ms P-R-T Axes : 048 021 015 degrees QTc Int : 527 ms NORMAL SINUS RHYTHM INCOMPLETE RIGHT BUNDLE BRANCH BLOCK POSSIBLE INFERIOR INFARCT , AGE UNDETERMINED PROLONGED QT ABNORMAL ECG NO PREVIOUS ECGS AVAILABLE Confirmed by ONEIL CHAMPAGNE MD ([id number]) on 06/23/2018 10:49:51 AM Referred By: MD MARTIN Confirmed By:ONEIL CHAMPAGNE MD
== END 2018-06-19 18:13 | disposition short-term general hospital (02) | DRG 281 ==
LOC: FER 21:25 → J4W 06-19 02:20
PROVIDERS: ADMIT Internal Medicine; ATTEND Internal Medicine
DX: I21.4 Non-ST elevation (NSTEMI) myocardial infarction (principal); J98.11 Atelectasis; I48.91 Unspecified atrial fibrillation; J45.909 Unspecified asthma, uncomplicated; R07.9 Chest pain, unspecified; C50.919 Malignant neoplasm of unspecified site of unspecified female breast; I10 Essential (primary) hypertension
CPT/HCPCS: 36415; 71046-TC-FY; 71250-TC; 80048; 80053; 80061; 83036; 83721; 83735; 83880; 84100; 84484; 85025; 85610; 93005; 93010; 99284-25; J1644

== ENCOUNTER 2021-08-13 03:15 | Emergency (ER) | payer OTHER ==
[2021-08-13 03:21] VITALS: BP 156/72; PULSE 86; TEMP 98; BMI 32.8
== END 2021-08-13 03:54 | disposition home or self-care (01) ==
LOC: FER 03:15
DX: R22.31 Localized swelling, mass and lump, right upper limb (principal)
CPT/HCPCS: 99281-25